=== PATIENT | female | born 1980 | race American Indian/Alaskan Native ===

== ENCOUNTER 2016-09-29 16:14 | Emergency (ER) | payer SELFPAY ==
[2016-09-29] MEDS ORDERED: TORADOL IM ONE (17:27)
--- NOTE | 2016-09-29 17:42 | Emergency Department Report ---
ED Neck Pain/Injury HPI - General Chief Complaint: Neck Pain/Injury Stated Complaint: RIGHT SIDE PAIN Time Seen by Provider: 09/29/16 17:17 Source: patient Mode of arrival: Ambulatory Limitations: No Limitations - History of Present Illness Initial Comments: PT states she was at work this morning and the R side of her neck started to hurt around 0830. 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 PT states the pain started when she sat down to do charting. PT states she took Motrin at 0900 but that did not improve her pain. PT states her pain is a 10/10. PT denies feeling sick. PT states this has never happened before. MD Complaint: neck pain -: Gradual, hour(s) Time: 08:30 Place: work Radiation: right lateral, right shoulder Severity: moderate Severity scale (0 -10): 10 Quality: sharp Consistency: constant Improves With: none Worsens With: movement of extremity, movement of neck Associated Symptoms: none. denies: headache, fever, numbness, tingling, weakness, nausea, vomiting Treatments Prior to Arrival: Ibuprofen (0900) - Related Data Previous Rx's Medication Instructions Recorded Last Taken Type Ibuprofen [Motrin] 600 mg PO Q8H PRN #15 tablet 09/29/16 Unknown Rx methOCARBAMOL [Robaxin TAB] 500 mg PO Q6H PRN #15 tablet 09/29/16 Unknown Rx traMADol [Ultram] 50 mg PO Q6HR PRN #12 tablet 09/29/16 Unknown Rx Allergies Allergy/AdvReac Type Severity Reaction Status Date / Time No Known Allergies Allergy Unverified 09/29/16 16:39 ED Review of Systems ROS: Stated complaint: RIGHT SIDE PAIN Other details as noted in HPI Comment: All other systems reviewed and negative Constitutional: denies: chills, fever ENT: denies: congestion Gastrointestinal: denies: abdominal pain, nausea, vomiting Genitourinary: denies: abnormal menses Musculoskeletal: as per HPI, back pain Skin: denies: rash ED Past Medical Hx - Past Medical History Previous Medical History?: Yes Hx Hypertension: Yes (off meds) - Surgical History Past Surgical History?: No - Social History Smoking Status: Never Smoker Substance Use Type: Alcohol, Non Opiate Pain - Medications Home Medications: Home Medications Medication Instructions Recorded Confirmed Last Taken Type Ibuprofen [Motrin] 600 mg PO Q8H PRN #15 tablet 09/29/16 Unknown Rx methOCARBAMOL [Robaxin TAB] 500 mg PO Q6H PRN #15 tablet 09/29/16 Unknown Rx traMADol [Ultram] 50 mg PO Q6HR PRN #12 tablet 09/29/16 Unknown Rx ED Physical Exam - General Limitations: No Limitations General appearance: alert, in no apparent distress - Head Head exam: Present: atraumatic, normocephalic, normal inspection - Eye Eye exam: Present: normal appearance. Absent: conjunctival injection - ENT ENT exam: Present: normal exam, normal external ear exam - Neck Neck exam: Present: normal inspection, tenderness, other (no post midline C- spine tenderness. R lateral paraspinal muscles tender. decrease lateral rotation to the left and right noted ). Absent: meningismus, full ROM, lymphadenopathy - Expanded Neck Exam Expanded Neck exam: Present: tenderness. Absent: midline deformity, anterior neck swelling - Respiratory Respiratory exam: Present: normal lung sounds bilaterally. Absent: respiratory distress - Cardiovascular Cardiovascular Exam: Present: regular rate, normal rhythm - Extremities Exam Extremities exam: Present: normal inspection, full ROM. Absent: tenderness - Back Exam Back exam: Present: normal inspection, full ROM, tenderness (to the R trapiezus ), muscle spasm. Absent: paraspinal tenderness, vertebral tenderness - Neurological Exam Neurological exam: Present: alert, oriented X3, normal gait - Psychiatric Psychiatric exam: Present: normal affect, normal mood - Skin Skin exam: Present: warm, dry, intact, normal color ED Course Vital Signs 09/29/16 09/29/16 16:39 18:07 Temperature 98.1 F Pulse Rate 76 72 Respiratory 20 18 Rate Blood Pressure 137/92 Blood Pressure 132/90 [Left] O2 Sat by Pulse 100 100 Oximetry - Reevaluation(s) Reevaluation #1: 09/29/16 17:45 PT aware of dx and plan of care. PT has no questions at this time. - Pulse Oximetry Interpretation Digit-Finger Initial Pulse Oximetry Readin Actions Taken: none ED Medical Decision Making - Differential Diagnosis strain, [place] Critical Care Time: No Critical care attestation.: If time is entered above; I have spent that time in minutes in the direct care of this critically ill patient, excluding procedure time. ED Disposition Clinical Impression: Cervical strain, acute Qualifiers: Encounter type: initial encounter Qualified Code(s): S16.1XXA - Strain of muscle, fascia and tendon at neck level, initial encounter Disposition: DISCHARGED TO HOME OR SELFCARE Is pt being admited?: No Does the pt Need Aspirin: No Condition: Stable Instructions: Cervical Spine Strain (ED), Spasmodic Torticollis (ED) Additional Instructions: No driving or ETOH after Ultram or Robaxin Prescriptions: Ibuprofen [Motrin] 600 mg PO Q8H PRN #15 tablet PRN Reason: Pain methOCARBAMOL [Robaxin TAB] 500 mg PO Q6H PRN #15 tablet PRN Reason: Muscle Spasm traMADol [Ultram] 50 mg PO Q6HR PRN #12 tablet PRN Reason: Pain Referrals: MAY FOREMAN MD, PHD [Staff Physician] - 3-5 Days Forms: Work/School Release Form(ED) Time of Disposition: 17:49
[2016-09-29 18:08] VITALS: BP 132/90
== END 2016-09-29 18:07 | disposition home or self-care (01) ==
LOC: ED 16:14
DX: S16.1XXA Strain of muscle, fascia and tendon at neck level, initial encounter (principal); I10 Essential (primary) hypertension; X58.XXXA Exposure to other specified factors, initial encounter; Y93.9 Activity, unspecified; Y92.9 Unspecified place or not applicable; Y99.9 Unspecified external cause status
CPT/HCPCS: 96372; 99282; J1885; J2930

== ENCOUNTER 2016-10-05 18:10 | Emergency (ER) | payer BC ==
[2016-10-05] MEDS ORDERED: ZOFRAN ODT PO ONE (21:04)
--- NOTE | 2016-10-05 21:04 | Emergency Department Report ---
ED N/V/D HPI - General Chief complaint: Dizziness Stated complaint: VOMITING/DIZZINESS Time Seen by Provider: 10/05/16 20:40 Source: patient Mode of arrival: Ambulatory Limitations: No Limitations - History of Present Illness Initial comments: 36-year-old female past medical history none presents with complaint of multiple episodes of nausea and vomiting overnight. Patient states that she used tramadol for pain associated with her neck. Patient was assessed for cervical spine strain week ago and given prescriptions for Robaxin and tramadol. Patient states that yesterday evening her neck was bothering her somewhat so she took a dose of tramadol. Patient states that a few hours later she had several episodes of vomiting and felt very nauseous. Vomited several times overnight. Nausea has somewhat subsided and has not vomited in several hours. Patient denies any abdominal pain states that her primary symptom was nausea. Denies any fever denies any chills denies any dysuria or hematuria no chest pain or shortness of breath. Patient is awake alert and oriented 3. Patient is nontoxic appearing and fully lucid. MD complaint: nausea, vomiting Onset/Timin -: days(s) Description of Vomiting: food contents Associated Abdominal Pain: No Consistency: intermittent Context: other (recent tramadol use) Associated Symptoms: denies other symptoms - Related Data Previous Rx's Medication Instructions Recorded Last Taken Type Ibuprofen [Motrin] 600 mg PO Q8H PRN #15 tablet 09/29/16 Unknown Rx methOCARBAMOL [Robaxin TAB] 500 mg PO Q6H PRN #15 tablet 09/29/16 Unknown Rx traMADol [Ultram] 50 mg PO Q6HR PRN #12 tablet 09/29/16 Unknown Rx Ondansetron [Zofran Odt] 4 mg PO Q8H PRN #10 tab.rapdis 10/05/16 Unknown Rx Allergies Allergy/AdvReac Type Severity Reaction Status Date / Time No Known Allergies Allergy Unverified 09/29/16 16:39 ED Review of Systems ROS: Stated complaint: VOMITING/DIZZINESS Other details as noted in HPI Constitutional: denies: chills, fever Eyes: denies: eye pain, eye discharge, vision change ENT: denies: ear pain, throat pain Respiratory: denies: cough, shortness of breath, wheezing Cardiovascular: denies: chest pain, palpitations Endocrine: no symptoms reported Gastrointestinal: denies: abdominal pain, nausea, diarrhea Genitourinary: denies: urgency, dysuria, discharge Musculoskeletal: as per HPI (neck pain of one week). denies: back pain, joint swelling, arthralgia Skin: denies: rash, lesions Neurological: denies: headache, weakness, paresthesias Psychiatric: denies: anxiety, depression Hematological/Lymphatic: denies: easy bleeding, easy bruising ED Past Medical Hx - Past Medical History Hx Hypertension: Yes (off meds) - Surgical History Past Surgical History?: No - Social History Smoking Status: Never Smoker Substance Use Type: None - Medications Home Medications: Home Medications Medication Instructions Recorded Confirmed Last Taken Type Ibuprofen [Motrin] 600 mg PO Q8H PRN #15 tablet 09/29/16 Unknown Rx methOCARBAMOL [Robaxin TAB] 500 mg PO Q6H PRN #15 tablet 09/29/16 Unknown Rx traMADol [Ultram] 50 mg PO Q6HR PRN #12 tablet 09/29/16 Unknown Rx Ondansetron [Zofran Odt] 4 mg PO Q8H PRN #10 tab.rapdis 10/05/16 Unknown Rx ED Physical Exam - General Limitations: No Limitations General appearance: alert, in no apparent distress - Head Head exam: Present: atraumatic, normocephalic - Eye Eye exam: Present: normal appearance, PERRL, EOMI - ENT ENT exam: Present: mucous membranes moist - Neck Neck exam: Present: normal inspection - Respiratory Respiratory exam: Present: normal lung sounds bilaterally. Absent: respiratory distress - Cardiovascular Cardiovascular Exam: Present: regular rate, normal rhythm. Absent: systolic murmur, diastolic murmur, rubs, gallop - GI/Abdominal GI/Abdominal exam: Present: soft (abdomen soft nontender nondistended on 4 quadrants no tenderness at McBurney's point no tenderness at Zelaya's point iliopsoas negative), normal bowel sounds - Extremities Exam Extremities exam: Present: normal inspection, full ROM - Back Exam Back exam: Present: normal inspection - Neurological Exam Neurological exam: Present: alert, oriented X3, CN II-XII intact, normal gait - Psychiatric Psychiatric exam: Present: normal affect, normal mood - Skin Skin exam: Present: warm, dry, intact, normal color. Absent: rash ED Course Vital Signs 10/05/16 18:17 Temperature 98.7 F Pulse Rate 95 H Respiratory 18 Rate Blood Pressure 136/95 O2 Sat by Pulse 100 Oximetry ED Medical Decision Making - Medical Decision Making A/P: Acute nausea and vomiting, likely secondary to use her tramadol 1-as patient states that her episodes of nausea and vomiting occurred subsequent a few hours after taking tramadol it is likely the tramadol causes her nausea and vomiting. 2-patient is now able to tolerate by mouth fluid and food without feeling nauseous or vomiting 3-short course of PRN Zofran 4-I advised patient to refrain from using tramadol for now to use Motrin or her prescription for Robaxin for her neck pain 5- H and states that she will follow-up with her primary doctor this week Critical care attestation.: If time is entered above; I have spent that time in minutes in the direct care of this critically ill patient, excluding procedure time. ED Disposition Clinical Impression: Nausea & vomiting Qualifiers: Vomiting type: unspecified Vomiting Intractability: non-intractable Qualified Code(s): R11.2 - Nausea with vomiting, unspecified Disposition: DISCHARGED TO HOME OR SELFCARE Is pt being admited?: No Does the pt Need Aspirin: No Condition: Stable Instructions: Acute Nausea and Vomiting (ED) Prescriptions: Ondansetron [Zofran Odt] 4 mg PO Q8H PRN #10 tab.rapdis PRN Reason: Nausea Forms: Work/School Release Form(ED) Time of Disposition: 22:32
[2016-10-05 23:03] VITALS: BP 131/88
== END 2016-10-05 23:05 | disposition home or self-care (01) ==
LOC: ED 18:10
DX: R11.2 Nausea with vomiting, unspecified (principal); I10 Essential (primary) hypertension
CPT/HCPCS: 99282; Q0162

== ENCOUNTER 2017-02-14 08:50 | Outpatient (CLI) | payer BC ==
--- NOTE | 2017-02-14 10:57 | XRay Report ---
Cervical spine 4 views with flexion and extension views: History: Cervical radiculopathy. Findings: Normal height of vertebral bodies and intervertebral disc. Articular surfaces are unremarkable. No fracture. No soft tissue calcification. Impression No significant bony or articular abnormality. Early cervical spondylosis cannot be excluded. The flexion and extension views do not reveal any subluxation.
== END 2017-02-14 08:51 | disposition home or self-care (01) ==
LOC: XRAY 08:50
PROVIDERS: ATTEND Internal Medicine
DX: M47.22 Other spondylosis with radiculopathy, cervical region (principal)
CPT/HCPCS: 72052

== ENCOUNTER 2017-05-19 07:54 | Outpatient (CLI) | payer BC ==
--- NOTE | 2017-06-02 10:44 | Treadmill Report ---
THALLIUM STRESS TEST LEFT VENTRICLE: Left ventricular chamber size is within normal. Perfusion study demonstrates homogeneous uptake of the tracer in all segments, no significant perfusion defects identified. Gated analysis demonstrates normal left ventricular systolic function with ejection fraction greater than 70%. CONCLUSION: Normal myocardial perfusion study. JOB# [id number] CA/NTS
== END 2017-05-19 07:55 | disposition home or self-care (01) ==
LOC: ECHO 07:54
PROVIDERS: ATTEND Nurse Practitioner Family
DX: I34.0 Nonrheumatic mitral (valve) insufficiency (principal); I51.7 Cardiomegaly
CPT/HCPCS: 78452; 93017; 93306; A9502

== ENCOUNTER 2017-08-15 12:19 | Emergency (ER) | payer BC ==
--- NOTE | 2017-08-15 13:35 | Emergency Department Report ---
Blank Doc - Documentation Documentation: Patient is a 37-year-old -[place] female who is presenting with pleuritic right-sided chest pain as well as right posterior knee pain. These were present for approximately 1 day. Patient has some mild shortness of breath 12. Patient will sawant labs ordered Q track and will be sent over today for further evaluation. Ve
[2017-08-15 14:24] LABS: Hematocrit 39.9 % (30.3-42.9); Hemoglobin 12.8 gm/dl (10.1-14.3); Mean Corpuscular HGB Conc 32 % (30-34); Mean Corpuscular Hemoglobin 27 pg (28-32); Mean Corpuscular Volume 83 fl (79-97); Platelet Count 278 K/mm3 (140-440); Red Blood Count 4.78 M/mm3 (3.65-5.03); Red Cell Distribution Width 13.4 % (13.2-15.2)
[2017-08-15 14:29] LABS: Alanine Aminotransferase 12 units/L (7-56); BUN/Creatinine Ratio 16; Blood Urea Nitrogen 8 mg/dL (7-17); Calcium 8.8 mg/dL (8.4-10.2); Hemolysis Index 4
--- NOTE | 2017-08-15 14:54 | Emergency Department Report ---
ED General Adult HPI - General Chief complaint: Chest Pain Stated complaint: CHEST PAIN Time Seen by Provider: 08/15/17 13:23 Source: patient Mode of arrival: Ambulatory Limitations: No Limitations - History of Present Illness Initial comments: Mrs. Seaman is a healthy 37-year-old female with history of hypertension. She has episodic chest pain. She has sharp central chest pain which lasts seconds. Several episodes since this morning. No current pain at this time. She has pain in the right knee in the posterior right knee. She's had 3 days of sore throat and cough. 5 months ago she had similar symptoms. Her PCP arranged outpatient echocardiogram and cardiac stress test. Both tests were normal. She is currently symptom free with the exception of mild posterior right knee pain. No family history of cardiac disease. No family histor venous thromboembolic disease. Severity scale (0 -10): 7 - Related Data Previous Rx's Medication Instructions Recorded Last Taken Type Ibuprofen [Motrin] 600 mg PO Q8H PRN #15 tablet 09/29/16 Unknown Rx methOCARBAMOL [Robaxin TAB] 500 mg PO Q6H PRN #15 tablet 09/29/16 Unknown Rx traMADol [Ultram] 50 mg PO Q6HR PRN #12 tablet 09/29/16 Unknown Rx Ondansetron [Zofran Odt] 4 mg PO Q8H PRN #10 tab.rapdis 10/05/16 Unknown Rx Allergies Allergy/AdvReac Type Severity Reaction Status Date / Time tramadol AdvReac Nausea Verified 08/15/17 12:28 ED Review of Systems ROS: Stated complaint: CHEST PAIN Other details as noted in HPI Comment: All other systems reviewed and negative Eyes: denies: eye pain Respiratory: cough Cardiovascular: chest pain ED Past Medical Hx - Past Medical History Previous Medical History?: Yes Hx Hypertension: Yes (off meds) - Surgical History Past Surgical History?: No - Social History Smoking Status: Never Smoker Substance Use Type: None - Medications Home Medications: Home Medications Medication Instructions Recorded Confirmed Last Taken Type Ibuprofen [Motrin] 600 mg PO Q8H PRN #15 tablet 09/29/16 Unknown Rx methOCARBAMOL [Robaxin TAB] 500 mg PO Q6H PRN #15 tablet 09/29/16 Unknown Rx traMADol [Ultram] 50 mg PO Q6HR PRN #12 tablet 09/29/16 Unknown Rx Ondansetron [Zofran Odt] 4 mg PO Q8H PRN #10 tab.rapdis 10/05/16 Unknown Rx ED Physical Exam - General Limitations: No Limitations General appearance: alert, in no apparent distress - Head Head exam: Present: atraumatic, normocephalic - Eye Eye exam: Present: normal appearance - ENT ENT exam: Present: mucous membranes moist - Neck Neck exam: Present: normal inspection - Respiratory Respiratory exam: Present: normal lung sounds bilaterally. Absent: respiratory distress, wheezes, rales, rhonchi - Cardiovascular Cardiovascular Exam: Present: regular rate, normal rhythm, normal heart sounds. Absent: systolic murmur, diastolic murmur, rubs, gallop - GI/Abdominal GI/Abdominal exam: Present: soft, normal bowel sounds. Absent: distended, guarding, rebound - Extremities Exam Extremities exam: Present: normal inspection, other (mild tenderness in the right posterior knee. Full range of motion right knee no erythema no edema) - Back Exam Back exam: Present: normal inspection - Neurological Exam Neurological exam: Present: alert, oriented X3 - Psychiatric Psychiatric exam: Present: normal affect, normal mood - Skin Skin exam: Present: warm, dry, intact, normal color. Absent: rash ED Course Vital Signs 08/15/17 08/15/17 08/15/17 12:29 14:30 14:39 Temperature 98 F 98.4 F Pulse Rate 72 64 Respiratory 16 18 17 Rate Blood Pressure 127/82 Blood Pressure 136/88 [Left] O2 Sat by Pulse 100 100 100 Oximetry ED Medical Decision Making - Lab Data Result diagrams: 08/15/17 13:40 08/15/17 13:40 Laboratory Results - last 24 hr 08/15/17 08/15/17 08/15/17 13:40 13:40 13:40 WBC 5.7 RBC 4.78 Hgb 12.8 Hct 39.9 MCV 83 MCH 27 L MCHC 32 RDW 13.4 Plt Count 278 Lymph % (Auto) [place] [employer] Seg Neutrophils % [place] [employer]er D-Dimer 198.65 Sodium 139 Potassium 3.8 Chloride 100.3 Carbon Dioxide 28 Anion Gap 15 BUN 8 Creatinine 0.5 L Estimated GFR > 60 BUN/Creatinine Ratio 16 Glucose 80 Calcium 8.8 Total Bilirubin 0.50 AST 18 ALT 12 Alkaline Phosphatase 67 Total Protein 7.2 Albumin 4.0 Albumin/Globulin Ratio 1.3 - EKG Data 08/15/17 14:51 EKG obtained at 1226 NSR nl rate nl axis nl intervals no ST-T signs of ischemia no ST elevation rate 70 beats a minute enlarged P waves in the inferior leads no signs of ischemia no ST elevation no sign of heart strain - Medical Decision Making Mrs. Seaman presents with episodic chest pain. She has been treated for GERD with prescription medication since the initial episode of chest pain 5 months ago. No indication of ACS/PE/pericarditis. PVCs are consideration. Esophageal spasm is a consideration. Arrhythmia not likely. No indication of pneumothorax. Mitral valve prolapse should be ruled out with echocardiogram. No chest pain at this time. No indication of DVT. I recommended repeat ultrasound if pain continues. No recent trauma to the lower extremity. She has now upper respiratory infection with sore throat and cough. Recommended supportive therapy. Critical care attestation.: If time is entered above; I have spent that time in minutes in the direct care of this critically ill patient, excluding procedure time. ED Disposition Clinical Impression: Chest pain, Knee pain, URI (upper respiratory infection) Disposition: DC-01 TO HOME OR SELFCARE Is pt being admited?: No Does the pt Need Aspirin: No Condition: Stable Instructions: Chest Pain (ED), Knee Pain (ED), Upper Respiratory Infection (ED) Referrals: PRIMARY CARE, [Primary Care Provider] - 2-3 Days Forms: Work/School Release Form(ED) Time of Disposition: 14:55
[2017-08-15 15:33] LABS: Band Neutrophils # (Manual) 0.1 K/mm3; Basophils % (Manual) 0 % (0.0-1.8); Platelet Estimate Consistent w Auto; RBC Morphology Normal; Total Cells Counted 100
[2017-08-15 16:03] VITALS: BP 111/73
== END 2017-08-15 15:12 | disposition home or self-care (01) ==
LOC: ED 12:19
DX: J06.9 Acute upper respiratory infection, unspecified (principal); M25.561 Pain in right knee; I10 Essential (primary) hypertension; Z88.6 Allergy status to analgesic agent
CPT/HCPCS: 36415; 80053; 85007; 85025; 85379; 93005; 93010; 99284

== ENCOUNTER 2018-10-18 11:47 | Outpatient (CLI) | payer BC ==
[2018-10-18 12:15] LABS: Hematocrit 38.7 % (30.3-42.9); Hemoglobin 12.4 gm/dl (10.1-14.3); Mean Corpuscular HGB Conc 32 % (30-34); Mean Corpuscular Volume 84 fl (79-97); Platelet Count 271 K/mm3 (140-440); Red Blood Count 4.59 M/mm3 (3.65-5.03); Red Cell Distribution Width 13.5 % (13.2-15.2)
[2018-10-18 12:49] LABS: Alanine Aminotransferase 16 units/L (7-56); Albumin 3.9 g/dL (3.9-5); BUN/Creatinine Ratio 15; Blood Urea Nitrogen 9 mg/dL (7-17); Calcium 8.8 mg/dL (8.4-10.2); HDL Cholesterol 44 mg/dL (40-59); Hemolysis Index 11; LDL Cholesterol,Direct 109 mg/dL (50-130)
[2018-10-18 14:04] LABS: Platelet Estimate Consistent w Auto; RBC Morphology Normal; Total Cells Counted 100
[2018-10-23 20:53] LABS: Vitamin D, 25-OH, D2 <4 ng/mL
== END 2018-10-18 11:48 | disposition home or self-care (01) ==
LOC: LAB 11:47
PROVIDERS: ATTEND Nurse Practitioner Family
DX: Z00.00 Encounter for general adult medical examination without abnormal findings (principal); I10 Essential (primary) hypertension
CPT/HCPCS: 36415; 80053; 80061; 82306; 84443; 85007; 85025

== ENCOUNTER 2019-01-24 17:36 | Emergency (ER) | payer SELFPAY ==
[2019-01-24 17:44] VITALS: BP 127/70
--- NOTE | 2019-01-24 17:50 | Emergency Department Report ---
Blank Doc - Documentation Documentation: 38-year-old female that presents with sore throat and left earache. This initial assessment/diagnostic orders/clinical plan/treatment(s) is/are subject to change based on patient's health status, clinical progression and re- assessment by fellow clinical providers in the ED. Further treatment and workup at subsequent clinical providers discretion. Patient/guardians urged not to elope from the ED as their condition may be serious if not clinically assessed and managed. Initial orders include: 1- Patient sent to [facility] for further evaluation and treatment 2- strep swab
--- NOTE | 2019-01-24 19:20 | Emergency Department Report ---
Minor Respiratory - HPI Chief Complaint: Sore Throat Stated Complaint: (R) SIDE FACE PAIN Time Seen by Provider: 01/24/19 17:42 ED Review of Systems ROS: Stated complaint: (R) SIDE FACE PAIN Other details as noted in HPI Comment: All other systems reviewed and negative ED Past Medical Hx - Past Medical History Previous Medical History?: Yes Hx Hypertension: Yes (off meds) - Surgical History Past Surgical History?: No - Social History Smoking Status: Never Smoker Substance Use Type: None - Medications Home Medications: Home Medications Medication Instructions Recorded Confirmed Last Taken Type Ibuprofen [Motrin] 600 mg PO Q8H PRN #15 tablet 09/29/16 Unknown Rx methOCARBAMOL [Robaxin TAB] 500 mg PO Q6H PRN #15 tablet 09/29/16 Unknown Rx traMADol [Ultram] 50 mg PO Q6HR PRN #12 tablet 09/29/16 Unknown Rx Ondansetron [Zofran Odt] 4 mg PO Q8H PRN #10 tab.rapdis 10/05/16 Unknown Rx Amoxicillin [Trimox CAP] 500 mg PO BID #20 capsule 01/24/19 Unknown Rx predniSONE [Deltasone] 20 mg PO DAILY #5 tablet 01/24/19 Unknown Rx Minor Respiratory Exam - Exam General: Vital signs noted. No distress. Alert and acting appropriately. Neurologic: Alert and oriented, no deficits. Musculoskeletal: Unremarkable. ED Course Vital Signs 01/24/19 17:42 Temperature 99.0 F Pulse Rate 76 Respiratory 16 Rate Blood Pressure 127/70 [Right] O2 Sat by Pulse 100 Oximetry Critical care attestation.: If time is entered above; I have spent that time in minutes in the direct care of this critically ill patient, excluding procedure time. ED Disposition Clinical Impression: Lymphadenopathy, URTI (acute upper respiratory infection) Disposition: DC-01 TO HOME OR SELFCARE Is pt being admited?: No Does the pt Need Aspirin: No Condition: Stable Instructions: Upper Respiratory Infection (ED) Additional Instructions: MEDS ORDERED FOLLOW UP WITH PCP MOTRIN OR TYLENOL FOR PAIN OR FEVER HYDRATE WELL WITH WATER Prescriptions: predniSONE [Deltasone] 20 mg PO DAILY #5 tablet Amoxicillin [Trimox CAP] 500 mg PO BID #20 capsule Referrals: HILARIO GALLAGHER MD [Staff Physician] - 3-5 Days Time of Disposition: 19:42
== END 2019-01-24 20:00 | disposition home or self-care (01) ==
LOC: ED 17:36
DX: J06.9 Acute upper respiratory infection, unspecified (principal); R59.1 Generalized enlarged lymph nodes; I10 Essential (primary) hypertension; Z79.899 Other long term (current) drug therapy; Z88.6 Allergy status to analgesic agent
CPT/HCPCS: 87116; 87430; 99283

== ENCOUNTER 2019-02-07 09:20 | Outpatient (CLI) | payer BC ==
--- NOTE | 2019-02-07 10:47 | Mammography Report ---
DIGITAL SCREENING MAMMOGRAM WITH CAD, 02/07/2019 INDICATION: Baseline screening mammography. TECHNIQUE: Digital bilateral 2D mammography was obtained in the craniocaudal and mediolateral obliq ue projections. This examination was interpreted with the benefit of Computer-Aided Detection analysi s. COMPARISON: None. FINDINGS: Breast Density: The breasts are heterogeneously dense, which may obscure small masses. A right asymmetry with architectural distortion on the CC view requires additional imaging. No suspic ious calcifications. The left breast is negative. IMPRESSION: Right asymmetry requiring additional imaging. Recommend recall for right ML and spot magn ification CC views and right breast ultrasound if needed. Follow up recommendation: Special View: Mag Category 0: Incomplete. Needs additional imaging evaluation and/or prior mammograms for comparison. A "normal" or negative report should not discourage follow up or biopsy of a clinically significant f inding. A written summary of these findings will be mailed to the patient. The patient will be entered into a mammography reporting system which will generate a reminder letter for the patient's next appointmen t at the appropriate interval. The [employer] recommends yearly mammograms starting at age 40 and continuing as l adithya as a woman is in good health. Breast MRI is recommended for women with an approximate 20-25% or greater lifetime risk of breast cancer, including women with a strong family history of breast or ova karson cancer or who have been treated for Hodgkin's disease. Signer Name: Chris Espinoza MD Signed: 02/07/2019 10:43 AM Workstation Name: [id number]
== END 2019-02-07 09:21 | disposition home or self-care (01) ==
LOC: MAMMO 09:20
PROVIDERS: ATTEND Nurse Practitioner Family
DX: Z12.31 Encounter for screening mammogram for malignant neoplasm of breast (principal); I10 Essential (primary) hypertension
CPT/HCPCS: 77067

== ENCOUNTER 2019-04-04 09:57 | Outpatient (CLI) | payer BC ==
--- NOTE | 2019-04-04 10:52 | Mammography Report ---
DIGITAL RIGHT DIAGNOSTIC MAMMOGRAM WITH CAD, WITHOUT TOMOSYNTHESIS 04/04/2019 INDICATION: Recall to evaluate asymmetry. TECHNIQUE: Digital right mammographic imaging was performed. This examination was interpreted with the benefit of Computer-aided Detection analysis. COMPARISON: 02/07/2019 Breast Density: The breast is heterogeneously dense, which may obscure small masses. FINDINGS: FINDINGS: ML and spot magnification CC views were performed and are negative. Satisfactory effacement of asymmetry. IMPRESSION: No mammographic evidence of malignancy. Follow up recommendation: Routine BI-RADS Category 1: Negative. A "normal" or negative report should not discourage follow up or biopsy of a clinically significant f inding. A written summary of these findings will be mailed to the patient. The patient will be entered into a mammography reporting system which will generate a reminder letter for the patient's next appointmen t at the appropriate interval. According to the [employer], yearly mammograms are recommended starting at age 40 and continuing as long as a woman is in good health. Breast MRI is recommended for women with an luda roximately 20-25% or greater lifetime risk of breast cancer, including women with a strong family his tory of breast or ovarian cancer and women who have been treated for Hodgkin's disease. Signer Name: Chris Espinoza MD Signed: 04/04/2019 10:47 AM Workstation Name: [id number]
== END 2019-04-04 09:58 | disposition home or self-care (01) ==
LOC: MAMMO 09:57
PROVIDERS: ATTEND Internal Medicine
DX: R92.8 Other abnormal and inconclusive findings on diagnostic imaging of breast (principal); Z88.8 Allergy status to other drugs, medicaments and biological substances

== ENCOUNTER 2020-02-18 11:46 | Outpatient (CLI) | payer BC ==
[2020-02-18 12:22] LABS: Hemoglobin 12.5 gm/dl (10.1-14.3); Mean Corpuscular HGB Conc 33 % (30-34); Mean Corpuscular Volume 85 fl (79-97); Platelet Count 254 K/mm3 (140-440); Red Blood Count 4.48 M/mm3 (3.65-5.03); Red Cell Distribution Width 13.7 % (13.2-15.2)
[2020-02-18 12:57] LABS: Alanine Aminotransferase 17 units/L (7-56); Albumin 3.9 g/dL (3.9-5); BUN/Creatinine Ratio 18; Blood Urea Nitrogen 9 mg/dL (7-17); Chol/HDL Ratio 3.55 %; HDL Cholesterol 45 mg/dL (40-59); Hemolysis Index 4; LDL Cholesterol,Direct 111 mg/dL (50-130)
[2020-02-18 14:46] LABS: Basophils % (Manual) 0 % (0.0-1.8); RBC Morphology Normal; Total Cells Counted 100
[2020-02-18 14:47] LABS: Platelet Estimate Consistent w Auto
== END 2020-02-18 11:47 | disposition home or self-care (01) ==
LOC: LAB 11:46
PROVIDERS: ATTEND Nurse Practitioner
DX: Z00.00 Encounter for general adult medical examination without abnormal findings (principal)
CPT/HCPCS: 36415; 80053; 80061; 82306; 85007; 85025

== ENCOUNTER 2020-04-18 08:40 | Outpatient (CLI) | payer BC ==
--- NOTE | 2020-04-18 10:25 | Mammography Report ---
DIGITAL SCREENING MAMMOGRAM WITH CAD, 04/18/2020 INDICATION: Routine screening mammography. TECHNIQUE: Digital bilateral 2D mammography was obtained in the craniocaudal and mediolateral obliq ue projections. This examination was interpreted with the benefit of Computer-Aided Detection analysi s. COMPARISON: 02/07/2019. FINDINGS: Breast Density: There are scattered areas of fibroglandular density. There is no evidence of dominant mass, suspicious calcifications or architectural distortion in eithe r breast. IMPRESSION: Follow up recommendation: Routine yearly BI-RADS Category 1: Negative. A "normal" or negative report should not discourage follow up or biopsy of a clinically significant f inding. A written summary of these findings will be mailed to the patient. The patient will be entered into a mammography reporting system which will generate a reminder letter for the patient's next appointmen t at the appropriate interval. The [employer] recommends yearly mammograms starting at age 40 and continuing as l adithya as a woman is in good health. Breast MRI is recommended for women with an approximate 20-25% or greater lifetime risk of breast cancer, including women with a strong family history of breast or ova karson cancer or who have been treated for Hodgkin's disease. Signer Name: Jonn Still MD Signed: 04/18/2020 10:21 AM Workstation Name: [id number]
== END 2020-04-18 08:41 | disposition home or self-care (01) ==
LOC: MAMMO 08:40
PROVIDERS: ATTEND Hospitalist
DX: Z12.31 Encounter for screening mammogram for malignant neoplasm of breast (principal); N64.89 Other specified disorders of breast
CPT/HCPCS: 77067

== ENCOUNTER 2020-11-26 19:51 | Emergency (ER) | payer BC ==
[2020-11-26 19:57] VITALS: BP 148/99
[2020-11-26] MEDS ORDERED: IBUPROFEN 800 MG TAB PO ONE (21:40)
--- NOTE | 2020-11-26 22:45 | Vascular Lab Report ---
DUPLEX DOPPLER LOWER EXTREMITY VEINS, LEFT INDICATION / CLINICAL INFORMATION: leg pain. TECHNIQUE: Duplex doppler imaging was performed through the veins of the left lower extremity using venous compr ession and other maneuvers. COMPARISON: None available. FINDINGS: LEFT COMMON FEMORAL VEIN: Negative. LEFT FEMORAL VEIN: Negative. LEFT POPLITEAL VEIN: Negative. LEFT CALF VEINS: Negative. ADDITIONAL FINDINGS: None. IMPRESSION: 1. No sonographic evidence for DVT in the left lower extremity. Signer Name: Asif Lugo MD Signed: 11/26/2020 10:40 PM Workstation Name: [id number]
--- NOTE | 2020-11-26 22:56 | XRay Report ---
Left foot radiograph, 3 views HISTORY: Pain COMPARISON: None FINDINGS: There is nonspecific diffuse soft tissue swelling of the foot, greatest about the forefoot. There is no acute fracture or malalignment. No aggressive cortical destructive changes. IMPRESSION: Nonspecific soft tissue swelling of the foot. No acute osseous findings. Signer Name: Asif Lugo MD Signed: 11/26/2020 10:51 PM Workstation Name: [id number]
--- NOTE | 2020-11-26 23:11 | Emergency Department Report ---
ED Lower Extremity HPI - General Chief Complaint: Extremity Problem,Nontraumatic Stated Complaint: BODYACHES Time Seen by Provider: 11/26/20 21:36 Source: patient Mode of arrival: Ambulatory Limitations: No Limitations - History of Present Illness Initial Comments: This is a 40-year-old female nontoxic, well nourished in appearance, no acute signs of distress presents to the ED with c/o of left leg and foot pain 1 week. 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 Patient denies any injuries or trauma. Patient denies any numbness, tingling, fever, chills, nausea, vomiting, chest pain, shortness of breath, headache, stiff neck. Patient denies any joint swelling or joint redness. Patient denies decreased range of motion. Patient stated has decreased gait due to pain. Patient stated allergies to tramadol. MD Complaint: leg injury, foot injury -: days(s) Injury: Leg: Left, Foot: Left Severity: mild Severity scale (0 -10): 8 Improves With: immobilization Worsens With: weight bearing, movement, palpation Associated Symptoms: ambulatory. denies: snap/pop sensation, swelling, numbness, tingling, unable to bear weight, able to partially bear weight - Related Data Previous Rx's Medication Instructions Recorded Last Taken Type Amoxicillin [Trimox CAP] 500 mg PO BID #20 capsule 01/24/19 Unknown Rx predniSONE [Deltasone] 20 mg PO DAILY #5 tablet 01/24/19 Unknown Rx Naproxen 500 mg PO Q12H PRN #12 tablet 11/26/20 Unknown Rx Allergies Allergy/AdvReac Type Severity Reaction Status Date / Time tramadol AdvReac Nausea Verified 08/15/17 12:28 ED Review of Systems ROS: Stated complaint: BODYACHES Other details as noted in HPI Comment: All other systems reviewed and negative Constitutional: denies: chills, fever Eyes: denies: eye pain, eye discharge, vision change ENT: denies: ear pain, throat pain Respiratory: denies: cough, shortness of breath, wheezing Cardiovascular: denies: chest pain, palpitations Endocrine: no symptoms reported Gastrointestinal: denies: abdominal pain, nausea, diarrhea Genitourinary: denies: urgency, dysuria, discharge Musculoskeletal: denies: back pain, joint swelling, arthralgia Skin: denies: rash, lesions Neurological: denies: headache, weakness, paresthesias Psychiatric: denies: anxiety, depression Hematological/Lymphatic: denies: easy bleeding, easy bruising ED Past Medical Hx - Past Medical History Previous Medical History?: Yes Hx Hypertension: Yes (off meds) - Surgical History Past Surgical History?: No - Social History Smoking Status: Never Smoker Substance Use Type: None - Medications Home Medications: Home Medications Medication Instructions Recorded Confirmed Last Taken Type Amoxicillin [Trimox CAP] 500 mg PO BID #20 capsule 01/24/19 Unknown Rx predniSONE [Deltasone] 20 mg PO DAILY #5 tablet 01/24/19 Unknown Rx Naproxen 500 mg PO Q12H PRN #12 tablet 11/26/20 Unknown Rx ED Physical Exam - General Limitations: No Limitations General appearance: alert, in no apparent distress - Head Head exam: Present: atraumatic, normocephalic - Eye Eye exam: Present: normal appearance - Neck Neck exam: Present: normal inspection, full ROM. Absent: lymphadenopathy - Respiratory Respiratory exam: Absent: respiratory distress - Cardiovascular Cardiovascular Exam: Present: regular rate - Extremities Exam Extremities exam: Present: normal inspection, full ROM, tenderness, normal capillary refill. Absent: pedal edema, joint swelling, calf tenderness - Expanded Lower Extremity Exam Left Hip exam: Present: normal inspection, full ROM. Absent: tenderness, swelling Upper Leg exam: Present: normal inspection, full ROM. Absent: tenderness, swelling Knee exam: Present: normal inspection, full ROM. Absent: tenderness, swelling Lower Leg exam: Present: normal inspection, full ROM, tenderness. Absent: swelling, abrasion, laceration, ecchymosis, deformity, crepidus, dislocation, erythema, palpable cord, Blossom's sign Ankle exam: Present: normal inspection, full ROM. Absent: tenderness, swelling Foot/Toe exam: Present: normal inspection, full ROM, tenderness. Absent: swelling, abrasion, laceration, ecchymosis, deformity, crepidus, dislocation, erythema, amputation, puncture wound, foreign body, calcaneal tenderness, te nderness at base of 5th metatarsal, nail avulsion, subungual hematoma Neuro vascular tendon exam: Present: no vascular compromise Gait: Positive: observed and limited by pain 1 - pain here 1 - pain here - Back Exam Back exam: Present: normal inspection, full ROM. Absent: tenderness, CVA tenderness (R), CVA tenderness (L), muscle spasm, paraspinal tenderness, vertebral tenderness, rash noted - Neurological Exam Neurological exam: Present: alert, oriented X3, normal gait - Psychiatric Psychiatric exam: Present: normal affect, normal mood - Skin Skin exam: Present: warm, dry, intact, normal color. Absent: rash ED Course Vital Signs 11/26/20 19:55 Temperature 99.4 F Pulse Rate 78 Respiratory 16 Rate Blood Pressure 148/99 O2 Sat by Pulse 99 Oximetry - Reevaluation(s) Reevaluation #1: 11/26/20 23:09 Patient is speaking in full sentences with no signs of distress noted. ED Lower Extremity MDM - Medical Decision Making This is a 40-year-old female that presents with left leg and plantar fasciitis. Patient is stable and was examined by me. I referred patient to an orthopedic doctor for further evaluation for possible MRI. X-ray/US doppler has been obtained and dictated by the radiologist. Patient is notified of the x-ray report with noted by the patient. Patient does have normal gait and no joint swelling. No ecchymosis. no joint redness or swelling. Not warm to touch. No signs of cellulites present. Patient was instructed to RICE therapy. Patient received Motrin for pain. Patient is discharged with Motrin. At time of discharge, the patient does not seem toxic or ill in appearance. No acute signs of distress noted. Patient agrees to discharge treatment plan of care. No further questions noted by the patient. Critical care attestation.: If time is entered above; I have spent that time in minutes in the direct care of this critically ill patient, excluding procedure time. ED Disposition Clinical Impression: Plantar fasciitis, left Strain of left hip and thigh Qualifiers: Encounter type: initial encounter Qualified Code(s): S76.012A - Strain of muscle, fascia and tendon of left hip, initial encounter; S76.912A - Strain of unspecified muscles, fascia and tendons at thigh level, left thigh, initial encounter Disposition: TO HOME OR SELFCARE Is pt being admited?: No Does the pt Need Aspirin: No Condition: Stable Instructions: Plantar Fasciitis Additional Instructions: Follow-up with a orthopedic doctor in 3-5 days or if symptoms worsen and c ontinue return to emergency room as soon as possible. Prescriptions: Naproxen 500 mg PO Q12H PRN #12 tablet PRN Reason: Pain , Severe (7-10) Referrals: PRIMARY [facility] [Referring] - 3-5 Days CHAR GODOY MD [Staff Physician] - 3-5 Days Forms: Work/School Release Form(ED) Time of Disposition: 23:12
== END 2020-11-26 23:20 | disposition home or self-care (01) ==
LOC: ED 19:51
DX: S76.012A Strain of muscle, fascia and tendon of left hip, initial encounter (principal); S76.912A Strain of unspecified muscles, fascia and tendons at thigh level, left thigh, initial encounter; M72.2 Plantar fascial fibromatosis; I10 Essential (primary) hypertension; Z88.8 Allergy status to other drugs, medicaments and biological substances; Z79.899 Other long term (current) drug therapy; X58.XXXA Exposure to other specified factors, initial encounter; Y93.89 Activity, other specified; Y92.89 Other specified places as the place of occurrence of the external cause; Y99.8 Other external cause status
CPT/HCPCS: 99284

== ENCOUNTER 2021-02-06 10:05 | Outpatient (CLI) | payer BC ==
[2021-02-06 10:45] LABS: Hematocrit 37.1 % (30.3-42.9); Hemoglobin 12.8 gm/dl (10.1-14.3); Mean Corpuscular HGB Conc 34 % (30-34); Mean Corpuscular Volume 83 fl (79-97); Platelet Count 259 K/mm3 (140-440); Red Blood Count 4.47 M/mm3 (3.65-5.03); Red Cell Distribution Width 13.3 % (13.2-15.2)
[2021-02-06 11:11] LABS: Alanine Aminotransferase 13 units/L (7-56); Albumin 3.9 g/dL (3.9-5); Blood Urea Nitrogen 10 mg/dL (7-17); Calcium 9.2 mg/dL (8.4-10.2); Chol/HDL Ratio 4.53 %; HDL Cholesterol 41 mg/dL (40-59); Hemolysis Index 6; LDL Cholesterol,Direct 128 mg/dL (50-130)
[2021-02-06 11:13] LABS: BUN/Creatinine Ratio 14
--- NOTE | 2021-02-06 13:49 | Magnetic Resonance Report ---
MR lumbar spine wo con INDICATION / CLINICAL INFORMATION: MUSCLE STRAIN, LT FOOT PAIN. TECHNIQUE: Multisequence, multiplanar images of the lumbar spine were obtained. COMPARISON: None available. FINDINGS: ALIGNMENT: Normal alignment. VERTEBRAE:No aggressive osseous marrow signal. Vertebral body heights are preserved. VISUALIZED SPINAL CORD: The conus appears within normal limits. [id number] ANALYSIS: L1-2: No significant spinal canal stenosis. No significant foraminal narrowing. L2-3: No significant spinal canal stenosis. No significant foraminal narrowing. L3-4: No significant spinal canal stenosis. No significant foraminal narrowing. L4-5: No significant spinal canal stenosis. No significant foraminal narrowing. L5-S1: No significant spinal canal stenosis. No significant foraminal narrowing. PARASPINAL SOFT TISSUES: No significant abnormality. ADDITIONAL FINDINGS: None. IMPRESSION: No significant abnormality of the lumbar spine. Definitions used for the purposes of this report: Lumbar canal stenosis (Nicole et al. Br J Radiol. 2013 September;86(3145):[id number]): No stenosis: No attenuation of the CSF spaces Mild stenosis: Anterior CSF space mildly obliterated Moderate stenosis: Anterior CSF space is moderately obliterated; cauda equina partially aggregated Severe stenosis: Marked compression of the dural sac; cauda equina cannot be visually and a ppear as a bundle Lumbar lateral recess stenosis (Georgiana et al. World J Radiol. 2017 October 10;9(5):223-229): No stenosis: Nerve root is bathed in fluid Mild stenosis: Narrowing of the lateral recess without root deviation Moderate stenosis: Narrowing of the recess with nerve root deviation Severe stenosis: Compression of the nerve root Lumbar neural foraminal stenosis (Cachorro et al. AJR Am J Roentgenol. 2010 Aug;194(4):1095-8): No stenosis: No attenuation of the fat in the foramen Mild stenosis: Loss of the fat in the foramen on two sides Moderate stenosis: Loss of the fat in the foramen all four sides Severe stenosis: Loss of the fat in the foramen all four sides and compression of the nerve root Signer Name: Antonio Moffett MD Signed: 02/06/2021 1:45 PM Workstation Name: [id number]
[2021-02-06 21:55] LABS: Anisocytosis 1+; Platelet Estimate Consistent w Auto; Total Cells Counted 100
== END 2021-02-06 10:06 | disposition home or self-care (01) ==
LOC: MRI 10:05
PROVIDERS: ATTEND Orthopaedic Surgery
DX: Z00.00 Encounter for general adult medical examination without abnormal findings (principal); S76.012A Strain of muscle, fascia and tendon of left hip, initial encounter; X58.XXXA Exposure to other specified factors, initial encounter; Y93.89 Activity, other specified; Y92.89 Other specified places as the place of occurrence of the external cause; Y99.8 Other external cause status
CPT/HCPCS: 36415; 72148; 80053; 80061; 82306; 84443; 85007; 85025

== ENCOUNTER 2021-04-29 13:13 | Outpatient (CLI) | payer BC ==
--- NOTE | 2021-04-30 14:56 | Mammography Report ---
DIGITAL SCREENING MAMMOGRAM WITH CAD, 04/29/2021 CLINICAL INFORMATION / INDICATION: Routine screening mammography. SCREENING MAMMOGRAM TECHNIQUE: Digital bilateral 2D mammography was obtained in the craniocaudal and mediolateral obliqu e projections. This examination was interpreted with the benefit of Computer-Aided Detection analysis . COMPARISON: 02/07/2019 and 04/18/2020. FINDINGS: Breast Density: There are scattered areas of fibroglandular density. No dominant mass, suspicious calcifications, or architectural distortion in either breast. IMPRESSION: No mammographic evidence of malignancy. Follow up recommendation: Routine yearly BI-RADS Category 1: Negative. A "normal" or negative report should not discourage follow up or biopsy of a clinically significant f inding. A written summary of these findings will be mailed to the patient. The patient will be entered into a mammography reporting system which will generate a reminder letter for the patient's next appointmen t at the appropriate interval. The [employer] recommends yearly mammograms starting at age 40 and continuing as l adithya as a woman is in good health. Breast MRI is recommended for women with an approximate 20-25% or greater lifetime risk of breast cancer, including women with a strong family history of breast or ova karson cancer or who have been treated for Hodgkin's disease. Signer Name: Dominguez Rangel MD Signed: 04/30/2021 2:51 PM Workstation Name: [id number]
== END 2021-04-29 13:14 | disposition home or self-care (01) ==
LOC: MAMMO 13:13
PROVIDERS: ATTEND Internal Medicine
DX: Z12.31 Encounter for screening mammogram for malignant neoplasm of breast (principal)
CPT/HCPCS: 77067